=== PATIENT | female | born 1985 ===

== ENCOUNTER 2017-06-04 19:39 | Emergency (ER) | payer OTHER ==
[2017-06-04 19:57] VITALS: BMI 37.8
[2017-06-04] MEDS ORDERED: Lactated Ringer's 1,000 ML IV SCH (20:00)
--- NOTE | 2017-06-04 20:01 | OBHP ---
Datetime: 06/04/2017 19:57 IP Adm Impression: Term, intrauterine Admit Comment, IP Provider: at 37.6weeks cme with lower abdominal pin started in the afternoon, no vb, lof+fm obhx 3 x pmh den med pnv all nkda psh den soch de ve /-3 a/p at 37.6weeks andominal pain npo/ivf ua cont robert and efm cont close observation Pelvic Type - PN: Adequate Extremities - PN: Normal Abdomen - PN: Normal Back - PN: Normal Breast - PN: Normal Lungs - PN: Normal Heart - PN: Normal Thyroid - PN: Normal Neurologic - PN: Normal HEENT - PN: Normal General - PN: Normal FHR - Baseline A Provider: 130 Contraction Comments Provider: q1-5 EGA AdmitDate IP: 37.6 Vital Signs Provider: Reviewed; Within Normal Limits IP Chief Complaint: Uterine contractions NICHD Variability Prov Fetus A: Moderate 6-25bpm Dilatation, Provider: 1 Effacement, Provider: 40 Station, Provider: -3 Genitourinary Exam: Normal DTRs - PN: Normal
[2017-06-04 20:30] LABS: SQUAMOUS EPITHIAL 7 /hpf (0-5); URINE BACTERIA OCC (<OCC); URINE BILIRUBIN NEGATIVE (NEGATIVE); URINE BLOOD NEGATIVE (NEGATIVE); URINE CLARITY Hazy (Clear); URINE COLOR Red (YELLOW); URINE GLUCOSE (UA) NORMAL (Normal); URINE LEUKOCYTE ESTERASE 2+ Leu/uL (Negative); URINE PROTEIN NEGATIVE (NEGATIVE); URINE UROBILINOGEN NORMAL mg/dL (0.2-1.0)
--- NOTE | 2017-06-04 20:36 | OBDCSUM ---
Datetime: 06/04/2017 20:33 Discharged to, Provider: Home Follow up at, Provider: wednesday Follow up in weeks, Provider: clinic Disch Activity Restrictions: No sexual activity; Nothing in vagina - [place], tampons, douche Discharge Comment, Provider: dc home labor given po hyr f/u in clinic on wednesday Discharge Diagnosis Prov Other: falses abor
[2017-06-05 01:12] VITALS: BP 108/62; PULSE 82; RESP 18; TEMP 97.6
--- NOTE | 2017-06-07 10:13 | OBHP ---
Datetime: 06/04/2017 19:57 Admit Comment, IP Provider: at 37.6weeks cme with lower abdominal pin started in the afternoon, no vb, lof+fm obhx 3 x pmh den med pnv all nkda psh den soch de ve /-3 a/p at 37.6weeks andominal pain npo/ivf ua cont robert and efm cont close observation after ivf nst is better dc home labor given po hyr f/u in clinic on wednesday IP Hx Assessment: The History has been Reviewed and is Current EGA AdmitDate IP: 37.6
== END 2017-06-04 21:00 | disposition home or self-care (01) ==
LOC: C.EROB 19:39
DX: O26.893 Other specified pregnancy related conditions, third trimester (principal); Z3A.37 37 weeks gestation of pregnancy; R10.9 Unspecified abdominal pain
CPT/HCPCS: 81001; 99283; J7120